=== PATIENT | female | born 1980 | race African-American/Black ===

== ENCOUNTER 2018-05-13 01:41 | Inpatient (IN) | payer OTHER ==
[~2018-05-13] VITALS: Ht 157.5 cm; Wt 100.0 kg
[~2018-05-13 01:41] MED LIST: LO LOESTRIN FE1 EACH PO; MULTIVITAMINS1 EAC9 PO
--- NOTE | 2018-05-13 09:51 | Admission Core Measures ---
Acute Coronary Syndrome (CM) ACS Core Measures Acute Coronary Syndrome Diagnosis No Congestive Heart Failure (NEW) CHF Core Measures Congestive Heart Failure Diagnosis No Cerebrovascular Accident CVA Core Measures CVA/TIA Diagnosis No Venous Thromboembolism VTE Core Alfonso (View Protocol) VTE Risk Factors Surgery No Mechanical VTE Prophylaxis d/t N/A MechProphylax Ordered No VTE Pharm Prophylaxis d/t NA PharmProphylax ordered Problem List As ranked by this Provider includes Assessment & Plan 1. S/P laparoscopic sleeve gastrectomy 2. Morbid obesity HOME MEDS Home Med List Multiple Vitamin (Multivitamins) 1 EACH TABLET 1 TAB PO DAILY SUPPLEMENT ( Reported) Norethindrone-E.estradiol-Iron (Lo Loestrin Fe 1-10 Tablet) 1MG-10(24) TABLET 1 TAB PO DAILY CONTRACEPTION (Reported)
--- NOTE | 2018-05-13 14:26 | Operative Report ---
Operative/Inv Procedure Report Surgery Date: 05/13/18 Name of Procedure: Laparoscopic Sleeve Gastrectomy, Laparoscopic hiatal hernia repair Pre-Operative Diagnosis: Morbid Obesity BMI 42 Post-Operative Diagnosis: Morbid Obesity BMI 42, Hiatal hernia Estimated Blood Loss: less than 50ml Surgeon/Radio Recorder: Dale Adams DO Anesthesia: general endotracheal tube IV Fluids: 1100 cc Drains: None Specimens: Stomach Complications: None Condition: Stable Operative Indication: This is a 37-year-old female presented to the office for workup for bariatric surgery. After appropriate workup was completed I discussed with the patient the band, the sleeve, and the gastric bypass. The patient chose to undergo a sleeve gastrectomy. All risks including but not limited to bleeding, infection, leak, stricture, injury to surrounding bowel/esophagus/stomach/liver/spleen, long-term reflux, DVT/PE, and mortality 10/999 patients were discussed in detail. Patient understood everything and decided to proceed. Operative/Procedure Note Note: The patient was brought to the operating room and placed on the operating room table in supine position. Venodyne stockings were placed and adequate general endotracheal anesthesia was obtained. The patient was prepped and draped in standard surgical fashion. Began the procedure by making a 2 cm transverse incision supraumbilically and slightly to the left of the midline. Then using a 12 mm clear Visiport and a 10 mm 0 laparoscope, the abdominal cavity was accessed. Great care was taken to go through the anterior rectus sheath, the posterior rectus sheath, and through the peritoneum. Once we entered the peritoneum the abdominal cavity was insufflated to 15 mmHg. Upon initial examination no obvious gross pathology was seen. Accessory trocars were placed, 5 mm in the epigastrium for the Odilon liver retractor. The retractor was inserted and the liver was retracted anteriorly exposing the hiatus, small hiatal hernia was seen. 5 mm ports were placed in the right and left upper quadrant, a 5 mm left lateral port, and a 15 mm right lateral port. Began the procedure by mobilizing the greater curvature of the stomach approximately 7 cm from the pylorus. Once the retrogastric space was reached the whole greater curvature was mobilized maintaining hemostasis using Harmonic scalpel. Full hiatal dissection was performed, a small hiatal hernia was seen. The left angel of the diaphragm was dissected away from the esophagus, reducing the hernia sac. We then brought our attention to the right angel, the pars flaccida was opened until the right angel was clearly visualized. Following this the right angel was dissected away from the esophagus as well and the esophagus was circumferentially dissected out of the chest. At the completion of dissection the esophagus was in the abdominal cavity for about 2-3 cm. The esophagus was retracted anteriorly and the hiatus was closed using 2-0 Tycron suture. At the completion of the closure there was ample room for the esophagus and the hiatus was adequately closed. Posterior adhesions were taken down using Harmonic scalpel as well. Once the stomach was adequately mobilized a 38 Israeli bougie was inserted and placed along the lesser curvature of the stomach. Once the bougie was in the appropriate position will began creating our sleeve, two 60 mm black staple loads with seamguard followed by two 60 mm purple staple loads with seamguard as well. Great care was taken to leave ample room at the incisura angularis, to prevent any twisting or kinking of the sleeve, to stay lateral to the esophagogastric fat pad, and to do a full fundal excision. At the completion of the staple line the staple line was examined, it appeared intact and no obvious bleeding was noted. The bougie was removed, the sleeve was lying nicely without any twisting or kinking. The resected stomach was removed through the right lateral port site. The port and the left upper quadrant were irrigated until clear. All ports were removed under direct visualization no obvious bleeding was noted. The 15 mm port site fascia was closed using 0 Vicryl suture. The skin was closed using 4-0 Monocryl. Steri-Strips and dressings were placed. The patient was successfully extubated and transferred to the recovery room in stable condition. The patient tolerated the procedure well with no complications. Findings: 3 cm hiatal hernia, 38 Fr bougie CC: Ernst BENNETT,Jo-Ann Young
--- NOTE | 2018-05-13 14:38 | Patient Discharge Instructions ---
Discharge Instructions General Discharge Information You were seen/treated for: Morbid Obesity (BMI 42), Hiatal hernia You had these procedures: Surgery Date: 05/13/18 Name of Procedure: Laparoscopic Sleeve Gastrectomy, Laparoscopic hiatal hernia repair Watch for these problems: FEVER>101.3, INCREASED PAIN, REDNESS/SWELLING/DRAINAGE, DIZZINESS, SHORTNESS OF BREATH, CHEST PAINS No bath, but you may shower: Yes Other wound care: OK TO SHOWER. KEEP INCISIONS CLEAN & DRY. LEAVE WHITE STERI STRIPS IN PLACE. Diet Continue normal diet: No Recommended Diet: Bariatric Additional DIET Information: WEEKLY BARIATRIC STAGE DIET ADVANCEMENT DIRECTED, TOLERATED Activity Full Activity/No Limits: No Activity Self Limited: Yes Pounds, do NOT lift more than: 10 Other activity limits: NO HEAVY LIFTING. NO STRENUOUS ACTIVITY. Acute Coronary Syndrome Inclusion Criteria At DC or during hospital stay patient has or had the following: ACS DIAGNOSIS No Discharge Core Measures Meds if any: Prescribed or Continued at Discharge Meds if any: NOT Prescribed or Continued at Discharge Congestive Heart Failure Inclusion Criteria At DC or during hospital stay patient has or had the following: CHF DIAGNOSIS No Discharge Core Measures Meds if any: Prescribed or Continued at Discharge Meds if any: NOT Prescribed or Continued at Discharge Cerebrovascular accident Inclusion Criteria At DC or during hospital stay patient has or had the following: CVA/TIA Diagnosis No Discharge Core Measures Meds if any: Prescribed or Continued at Discharge Meds if any: NOT Prescribed or Continued at Discharge Venous thromboembolism Inclusion Criteria VTE Diagnosis No VTE Type NONE VTE Confirmed by (Test) NONE Discharge Core Measures - Per Current guidelines, there needs to be overlap - treatment for the first 5 days of Warfarin therapy. - If discharged on Warfarin prior to 5 days of - overlap therapy, the patient will need to be - assessed for post discharge needs including - *Post discharge parental anticoagulation - *Warfarin and/or parental anticoagulation education - *Follow up date to check INR post discharge At least 5 days overlap therapy as Inpatient No Meds if any: Prescribed or Continued at Discharge Note: Overlap Therapy is Warfarin and Anticoagulant Meds if any: NOT Prescribed or Continued at Discharge
[2018-05-13] MEDS ORDERED: HYCET 7.5 MG-3473 ML PO (14:39)
[2018-05-13] MEDS ORDERED: PROTONIX40 M3 PO (14:39)
--- NOTE | 2018-05-13 14:42 | Surg Short-stay <48hrs Dis Sum ---
Visit Information Visit Dates Admission Date: 05/13/18 Discharge Date: 05/15/18 Surgical Short Stay DC Summary Admission Diagnosis: Morbid Obesity (BMI 42) Final Diagnosis: Morbid Obesity (BMI 42), Hiatal hernia Procedure(s): Surgery Date: 05/13/18 Name of Procedure: Laparoscopic Sleeve Gastrectomy, Laparoscopic hiatal hernia repair Summary/Significant Findings: Electively scheduled laparoscopic sleeve gastrectomy, and laparoscopic hiatal hernia repair by on 05/13/18 for history of morbid obesity (BMI 42), and hiatal hernia found intra-operatively. Started on stage 1 bariatric diet post-operatively. Upper gi study negative for leak and obstruction. Pain control transitioned from iv to oral medication. Discharged to home once tolerating stage 1 diet. No lovenox indicated at discharge. Condition at Discharge: stable Discharge Disposition: home or self care Discharge instructions provided to patient/family: Yes Post discharge follow-up plan: one week follow up with no lovenox indicated at the time of discharge Copies to: Ernst BENNETT,Jo-Ann Young
[2018-05-13 15:50] VITALS: BP 132/80
--- NOTE | 2018-05-13 16:44 | PN- Bariatrics ---
Subjective Subjective: POST-OP NOTE Reports mild epigastric discomfort. No nausea. Stretcher to bed without difficulty. No dizziness. No shortness of breath. No chest pains. Due to void this evening. Objective Vital Signs and I&Os Vital Signs Date Time Temp Pulse Resp B/P B/P Pulse O2 O2 Flow FiO2 Mean Ox Delivery Rate 05/13 1550 98.0 68 20 132/80 98 Nasal 2.0L Cannula 05/13 1550 94 Room Air Intake & Output 05/13 1600 05/13 0805/13 0000 05/12 1600 05/12 0805/12 0000 Intake Total Output Total Balance Patient 221 lb Weight Weight Bed scale Measurement Method Physical Exam: General - alert & oriented x 3. comfortable. no acute distress. Lungs - clear bilaterally. no w/r/r. Cardiac - s1s2. reg. Abdomen - soft. dressings c/d/i. no drains. lashay-incisional tenderness. Extremities - warm bilaterally. no c/c/e. calves soft and nontender b/l. athrombics active. Current Medications: Current Medications Sig/[place] Start time Last Medication Dose Route Stop Time Status Admin Acetaminophen 1,000 MG Q6 05/13 1800 AC N/A 1 UNIT IV 05/14 1214 Cefazolin Sodium 2,000 MG IQ8 05/13 2000 CAN IV 05/14 0801 Cefazolin Sodium 2 GM Q8H 05/13 2000 AC N/A 1 UNIT IV / 0429 Cefazolin Sodium 2,000 MG ONCE 05/13 0000 DC IV 05/13 2359 Dexamethasone 8 MG ONCE PRN 05/13 1615 AC IV Dextrose/Sodium 1,000 ML Q8H 05/13 1630 AC Chloride IV Heparin Sodium 5,000 UNIT Q8 05/13 2200 AC (Porcine) SC Heparin Sodium 5,000 UNIT ONCE 05/13 0000 DC (Porcine) SC 05/13 2359 Hydrocodone Bitart/ 15 ML Q4-6 PRN PRN 05/14 1200 AC 05/13 Acetaminophen PO 1616 Morphine Sulfate 2 MG Q4-6 PRN PRN 05/13 1615 AC IV Ondansetron HCl 4 MG Q6P PRN 05/13 1615 AC IV Pantoprazole Sodium 40 MG DAILY 05/14 0900 AC IV Simethicone 40 MG Q6P PRN 05/13 1615 AC PO Results Last 48 Hours of Labs: Laboratory Tests 05/13 0909 Urines Urine Test NEGATIVE Assessment/Plan Assessment/Plan This 37 year old female is POD#0 s/p laparoscopic sleeve gastrectomy, laparoscopic hiatal hernia repair for morbid obesity (BMI 42) and hiatal hernia stage 1 bariatric diet as tolerated npo after midnight for possible upper gi study in am pain medication as ordered anti-emetics as needed hep sc - dvt ppx oob/ambulation protonix - gi ppx due to void this evening f/u AM labs will d/w Core Measures Venous Thromboembolism VTE Risk Factors Surgery No Mechanical VTE Prophylaxis d/t N/A MechProphylax Ordered No VTE Pharm Prophylaxis d/t NA PharmProphylax ordered
[2018-05-13 22:45] VITALS: BP 146/92
[2018-05-14 07:04] VITALS: BP 151/92
--- NOTE | 2018-05-14 07:27 | PN- Student ---
See Addendum Roseann Mesa 05/14/18 0717: Subjective Subjective: Overnight, pt was in a significant amount of pain requiring morphine for breakthrough pain. After recieving this, the pt vomited three times in the middle of the night. Pt still complaining of nausea this morning. She has gotten oob 2 times and is voiding fine. Still no flatus,BM. Pt denies sob, cp. Objective Objective: Exam: Gen: O&Ax3, laying in bed, in mild distress Lungs: CTA Heart: RRR, s1 and s2 normal Abd: incisional site and epigastric pain upon palpation. soft, nt/nd, normoactive bs. one dressing with blood underneath, dressing still intact. Rest of dressing intact, clear, dry. LE: skin is warm,dry, no edema Results Results: Vital Signs Date Time Temp Pulse Resp B/P B/P Pulse O2 O2 Flow FiO2 Mean Ox Delivery Rate 05/14 0704 98.0 74 20 151/92 98 Room Air 05/14 0600 96 Room Air 05/14 0000 99 Room Air 05/13 2245 96.7 90 20 146/92 99 Room Air 05/13 2000 94 Room Air Room Air 05/13 1849 Room Air 05/13 1600 94 Room Air 05/13 1600 22 94 Room Air 05/13 1550 98.0 68 20 132/80 98 Nasal 2.0L Cannula 05/13 1550 98 Nasal 2.0L Cannula 05/13 1550 98 Nasal 2.0L Cannula Last 24 Hours I&Os 05/14 0800 / 0000 05/13 1600 Intake Total 725 995 40 Output Total 550 0 Balance 725 445 40 Intake, IV 725 875 10 Intake, Oral 120 30 Number 0 0 Bowel Movements Output, Urine 550 0 Patient 221 lb Weight Weight Bed scale Measurement Method Laboratory Tests 05/13/18 0909: Urine Test NEGATIVE Orders Procedure Date/time Status Nothing by Mouth 05/14 B Active XRY-UPPER GI SERIES 05/14 800 Active MAGNESIUM 05/14 600 Active GLUCOSE 05/14 600 Active CBC WITHOUT DIFFERENTIAL 05/14 600 Active BASIC ELECTROLYTES PLUS BUN&CR 05/14 600 Active Bariatric Diet - Stage 1 05/13 D Complete THERAPIST ORDERS 05/13 1851 Complete RT: Evaluation 05/13 1848 Active Weight 05/13 1603 Complete Vital Signs 05/13 1603 Complete Teach/Educate 05/13 1603 Active Pain Treatment and Response 05/13 1603 Active Nutritional Intake, Monitor 05/13 1603 Active Isolation 05/13 1603 Active Intake & Output 05/13 1603 Complete Patient Care Conference 05/13 1603 Active Activity/Ambulation 05/13 1603 Complete TRC EVALUATION (GEN) 05/13 1601 Complete Pathway - chart 05/13 1601 Active Admit to inpatient 05/13 1601 Active Patient Data 05/13 1601 Active Wound Care/Dressing 05/13 1601 Active VTE Mechanical Prophylaxis 05/13 1601 Active Vital Signs 05/13 1601 Active Nursing RT Care 05/13 1601 Active Nursing Misc 05/13 1601 Active Intake & Output 05/13 1601 Active Activity/Ambulation 05/13 1601 Active NUTRITIONAL CONSULT 05/13 1601 Active TRANSFER ORDERS 05/13 1240 Complete PATHOLOGY SPECIMEN 05/13 1237 Active Code Status 05/13 0949 Active URINE 05/13 0909 Complete Laboratory Tests 05/13/18 0909: Urine Test NEGATIVE Assessment/Plan Assessment: Pt is a 37 yo female POD#1 s/p laparoscopic sleeve gastrectomy, laparoscopic hiatal hernia repair for morbid obesity. Plan: -Pt is NPO and will go for UGI series today -C/w Stg 1 diet after study, as tolerated -No dominguez, voiding ok -encourage ambulation and oob -Zofran and decadron prn for nausea -Periop. Abx complete -c/w pain management -Protonix for gi ppx -Heparin for dvt ppx Signed ELOINA Anderson Jennifer 05/14/18 0741: Assessment/Plan Plan: Pt was seen and examined Agree with above PA student note Pt vomited three times overnight. She isn't currently nauseated but hasn't had any more intake since late last night. Scheduled for UGI this morning. Complaining of pain not completely relieved with meds. Had a dose of decadron this morning. Will follow up after UGI regarding diet advancement/dc planning, fu labs pending
[2018-05-14 10:16] LABS: ABSOLUTE BASOPHIL COUNT 0 /CUMM (0.0-0.2); ABSOLUTE EOSINOPHIL COUNT 0 /CUMM (0.0-0.7); ABSOLUTE GRANULOCYTE CT 11.5 /CUMM (1.4-6.5); ABSOLUTE LYMPH COUNT 0.7 /CUMM (1.2-3.4); ABSOLUTE MONOCYTE COUNT 0.3 /CUMM (0.10-0.60); BASOPHIL % 0.2 % (0.0-2.0); EOSINOPHIL % 0 % (0-5); HEMATOCRIT 38.9 % (37-47); MEAN CORPUSCULAR HGB 30.9 PG (27.0-31.0); MEAN CORPUSCULAR HGB CONC 33.1 G/DL (33.0-37.0); MEAN CORPUSCULAR VOLUME 93.2 FL (81.0-99.0); MEAN PLATELET VOLUME 10.4 FL (7.4-10.4); PLATELET COUNT 248 /CUMM (130-400); RBC DISTRIBUTION WIDTH 14.1 % (11.5-14.5); RED BLOOD CELL CT 4.17 /CUMM (4.20-5.40); WHITE BLOOD CELL COUNT 12.5 /CUMM (4.8-10.8)
[2018-05-14 10:39] LABS: GRANULOCYTE % 91.5 % (42.2-75.2)
--- NOTE | 2018-05-14 11:36 | RADIOLOGY REPORT ---
EXAMINATION: FL UPPER GI SERIES CLINICAL INFORMATION: 37-year-old female, status post sleeve gastrectomy. Postop day 1. For follow-up. COMPARISON: None TECHNIQUE: A single contrast upper GI series with fluoroscopy and spot imaging was performed. The patient ingested 30 mL of Gastrografin without difficulty and was evaluated in the upright and recumbent positions. FINDINGS: The cargo vessel stewardess images shows expected postsurgical changes in the epigastric region. Free flow of Gastrografin was noted from esophagus into the residual stomach without evidence of any leak. Free flow of Gastrografin is also noted across the pylorus into the duodenum. FLUOROSCOPY TIME: 2.24 minutes. NUMBER OF IMAGES: 8 series. IMPRESSION: Expected post operative changes of sleeve gastrectomy, without evidence of any leak or obstruction.
[2018-05-14 14:04] VITALS: BP 142/94
[2018-05-14 21:47] VITALS: BP 138/98
[2018-05-15 06:50] VITALS: BP 150/100
--- NOTE | 2018-05-15 07:38 | PN- Student ---
BonitaRoseann 05/15/18 0733: Subjective Subjective: Overnight no acute events. Pt did have some nausea and one episode of vomiting. Pt is tolerating her stage 1 diet and getting go po intake. Ambulating oob and voiding. She has still not passed flatus or had a BM. Still some nausea this morning. Pain is well controlled. pt denies cp,sob. Objective Objective: Exam: Gen: O&Ax3, laying in bed, in mild distress Lungs: CTA Heart: RRR, s1 and s2 normal Abd: incisional site and epigastric pain upon palpation. soft, nt/nd, normoactive bs. one dressing with blood underneath, dressing still intact. Rest of dressing intact, clear, dry. LE: skin is warm,dry, no edema Results Results: Vital Signs Date Time Temp Pulse Resp B/P B/P Pulse O2 O2 Flow FiO2 Mean Ox Delivery Rate 05/15 0650 98.3 57 20 150/100 98 / 0600 98 Room Air 05/14 2200 98 Room Air 05/14 2147 98.8 77 16 138/98 98 Room Air / 1404 97.4 72 20 142/94 98 Room Air 08/ 1400 95 Room Air / 0800 95 Room Air / 0704 98.0 74 20 151/92 98 Room Air / 0600 96 Room Air / 0000 99 Room Air / 2245 96.7 90 20 146/92 99 Room Air / 2000 94 Room Air Room Air 05/13 1849 Room Air 05/13 1600 94 Room Air 05/13 1600 22 94 Room Air 05/13 1550 98.0 68 20 132/80 98 Nasal 2.0L Cannula 05/13 1550 98 Nasal 2.0L Cannula 05/13 1550 98 Nasal 2.0L Cannula Last 24 Hours I&Os / 0800 08/03 0000 08 1600 Intake Total 0 185 1130 Output Total 0 425 1250 Balance 0 -240 -120 Intake, IV 35 1010 Intake, Oral 0 150 120 Number 0 0 Bowel Movements Output, 100 Emesis Output, Urine 0 325 1250 Laboratory Tests 05/14/18 0925: Anion Gap 9, Estimated GFR > 60, BUN/Creatinine Ratio 6.3 L, Glucose 148 H, Magnesium 2.0, CBC w Diff NO MAN DIFF REQ, RBC 4.17 L, MCV 93.2, MCH 30.9, MCHC 33.1, RDW 14.1, MPV 10.4, Gran % 91.5 H, Lymphocytes % 5.5 L, Monocytes % 2.8, Eosinophils % 0, Basophils % 0.2, Absolute Granulocytes 11.5 H, Absolute Lymphocytes 0.7 L, Absolute Monocytes 0.3, Absolute Eosinophils 0, Absolute Basophils 0 Orders Procedure Date/time Status Bariatric Diet - Stage 1 05/14 D Active Nothing by Mouth 05/14 B Complete MAGNESIUM 05/14 600 Complete GLUCOSE 05/14 600 Complete CBC WITHOUT DIFFERENTIAL 05/14 600 Complete BASIC ELECTROLYTES PLUS BUN&CR 05/14 600 Complete MISSING MEDICATION FORM 05/14 UNK Active Bariatric Diet - Stage 1 05/13 D Complete THERAPIST ORDERS 05/13 185 Complete RT: Evaluation 05/13 1848 Active Weight 05/13 1603 Complete Vital Signs 05/13 1603 Complete Teach/Educate 05/13 1603 Active Pain Treatment and Response 05/13 1603 Active Nutritional Intake, Monitor 05/13 1603 Active Isolation 05/13 1603 Active Intake & Output 05/13 1603 Complete Patient Care Conference 05/13 1603 Active Activity/Ambulation 05/13 1603 Complete TRC EVALUATION (GEN) 05/13 1601 Complete Pathway - chart 05/13 1601 Active Admit to inpatient 05/13 1601 Active Patient Data 05/13 1601 Active Wound Care/Dressing 05/13 1601 Active VTE Mechanical Prophylaxis 05/13 1601 Active Vital Signs 05/13 1601 Active Nursing RT Care 05/13 1601 Active Nursing Misc 05/13 1601 Active Intake & Output 05/13 1601 Active Activity/Ambulation 05/13 1601 Active NUTRITIONAL CONSULT 05/13 1601 Active TRANSFER ORDERS 05/13 1240 Complete PATHOLOGY SPECIMEN 05/13 1237 Complete Code Status 05/13 0949 Active URINE 05/13 0909 Complete INCENTIVE SPIROMETRY TRX CHG 05/13 UNK Complete Laboratory Tests 05/14/18 0925: Anion Gap 9, Estimated GFR > 60, BUN/Creatinine Ratio 6.3 L, Glucose 148 H, Magnesium 2.0, CBC w Diff NO MAN DIFF REQ, RBC 4.17 L, MCV 93.2, MCH 30.9, MCHC 33.1, RDW 14.1, MPV 10.4, Gran % 91.5 H, Lymphocytes % 5.5 L, Monocytes % 2.8, Eosinophils % 0, Basophils % 0.2, Absolute Granulocytes 11.5 H, Absolute Lymphocytes 0.7 L, Absolute Monocytes 0.3, Absolute Eosinophils 0, Absolute Basophils 0 05/13/18 0909: Urine Test NEGATIVE Assessment/Plan Assessment: Pt is a 37 yo female POD#2 s/p laparoscopic sleeve gastrectomy, laparoscopic hiatal hernia repair for morbid obesity. Plan: -UGI series done yesterday showed no leak or obstruction -POD 2- will change dressings -C/w Stg 1 diet as tolerated -Still no BM/fatus, pt used suppository last night, encourage po intake -No dominguez, voiding ok -encourage ambulation and oob -Zofran and decadron prn for nausea -Periop. Abx complete -c/w pain management -Protonix for gi ppx -Heparin for dvt ppx -Pt should be ready for discharge today, discuss discharge planning w/ pt Aaliyah Carvajal 05/15/18 6024: Assessment/Plan Plan: agree with above PA-S note tolerating stage 1 diet no flatus yet despite dulcolax OR x 1 last night oob/ambulating well would prefer percocet over hycet prn pain control d/c home today once passing flatus dulcolax OR x 1 prn will d/w
[2018-05-15] MEDS ORDERED: PERCOCET 5-3251 EACH PO (07:49)
[2018-05-15] MEDS ORDERED: PROTONIX40 M3 PO (07:50)
[2018-05-15 08:15] VITALS: BP 140/80
[2018-05-15 15:26] VITALS: BP 136/70
== END 2018-05-15 18:45 | DRG 621 ==
LOC: SDA 01:41 → ENRESERV 14:45 → ENTRNSPT 15:35 → EDTRNSPTSTS 15:42 → EDTRNSPT 15:42 → 2NB 15:49 → CMPTRNSPT 15:50 → ENPENDDIS 05-15 08:32 → 2NB 05-15 18:45
PROVIDERS: Physician Assistant
PROC: 0BQT4ZZ Repair Diaphragm, Percutaneous Endoscopic Approach (ICD-10-PCS; principal; 2018-05-13)
PROC: 0DB64Z3 Excision of Stomach, Percutaneous Endoscopic Approach, Vertical (ICD-10-PCS; principal; 2018-05-13)
PROC: 3E0T3BZ Introduction of Anesthetic Agent into Peripheral Nerves and Plexi, Percutaneous Approach (ICD-10-PCS; 2018-05-13)
DX: E66.01 Morbid (severe) obesity due to excess calories (principal); Z68.41 Body mass index [BMI] 40.0-44.9, adult; K44.9 Diaphragmatic hernia without obstruction or gangrene
CPT/HCPCS: 2NBP; 36592; 74240; 81025; 82436; J0131; J0690; J1100; J1644; J2405; J2765; J3490; J7042